=== PATIENT | male | born 1960 | race Caucasian/White ===

== ENCOUNTER 2018-05-06 21:23 | Emergency (ER) | payer OTHER ==
[~2018-05-06] VITALS: Ht 177.8 cm; Wt 78.0 kg
[2018-05-06 21:30] VITALS: BP 132/82
[2018-05-06 22:09] LABS: HEMATOCRIT 42.9 % (42.0-52.0); HEMOGLOBIN 14.8 gm/dL (14.0-18.0); MCH 30.9 pg (26.0-34.0); MCHC 34.5 g/dL (28.0-37.0); MCV 89.7 fL (80.0-100.0); RBC 4.79 mil/uL (4.50-6.00); RDW 13.1 % (10.5-14.5); WBC 6.5 thou/uL (4.0-11.0)
[2018-05-06 22:10] LABS: CALCIUM 8.6 mg/dL (8.5-10.1); POTASSIUM 3.7 mmol/L (3.5-5.1)
== END 2018-05-06 23:00 | disposition home or self-care (01) ==
LOC: ER 21:23
PROVIDERS: Student in an Organized Health Care Education/Training Program
DX: K62.5 Hemorrhage of anus and rectum (principal)

== ENCOUNTER 2019-10-19 14:22 | Emergency (ER) | payer OTHER ==
[~2019-10-19] VITALS: Ht 177.8 cm; Wt 83.9 kg
[2019-10-19] MEDS ORDERED: CIPROFLOXACIN500 M1 PO (17:22)
[2019-10-19] MEDS ORDERED: SENNA-DOCUSATE1 EAC1 PO (17:22)
[2019-10-19] MEDS ORDERED: NAPROSYN500 MG PO (17:22)
[2019-10-19] MEDS ORDERED: NORCO 5-325 TA1 EAC1 PO (17:22)
[2019-10-19 17:30] VITALS: BP 122/82
== END 2019-10-19 17:30 | disposition home or self-care (01) ==
LOC: ER 14:22
DX: S51.012A Laceration without foreign body of left elbow, initial encounter (principal); S20.212A Contusion of left front wall of thorax, initial encounter; S80.12XA Contusion of left lower leg, initial encounter; Z87.891 Personal history of nicotine dependence; W18.39XA Other fall on same level, initial encounter; Y93.89 Activity, other specified; Y92.89 Other specified places as the place of occurrence of the external cause; Y99.8 Other external cause status